=== PATIENT | female | born 2005 | race Caucasian/White ===

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

== ENCOUNTER 2024-09-29 09:55 | Outpatient (CLI) | payer BC, SELFPAY ==
[2024-09-29 10:02] VITALS: BP 125/74; PULSE 81
[2024-09-29 10:03] VITALS: RESP 18; BMI 27.4
[2024-09-29 10:17] VITALS: BP 125/68; PULSE 72
[2024-09-29 10:28] VITALS: BP 125/68; PULSE 72; O2SAT 98
== END 2024-09-29 10:28 | disposition home or self-care (01) ==
LOC: OPOB 09:57 → OBGYN 09:58
PROVIDERS: PCP Pediatrics; Visit Provider Family Medicine
DX: O36.8399 Maternal care for abnormalities of the fetal heart rate or rhythm, unspecified trimester, other fetus (principal); Z3A.00 Weeks of gestation of pregnancy not specified; R00.0 Tachycardia, unspecified
CPT/HCPCS: 59025; 99211

== ENCOUNTER 2024-10-31 19:04 | Outpatient (CLI) | payer BC, SELFPAY ==
[2024-10-31] VITALS (14 sets, daily range): BP systolic 108–120; BP diastolic 62–67; PULSE 81–95; O2SAT 97–98
== END 2024-10-31 20:08 | disposition home or self-care (01) ==
LOC: OPOB 19:06 → OBGYN 19:07
PROVIDERS: PCP Pediatrics; Visit Provider Family Medicine
DX: O26.899 Other specified pregnancy related conditions, unspecified trimester (principal); Z3A.00 Weeks of gestation of pregnancy not specified; R10.9 Unspecified abdominal pain; T59.811A Toxic effect of smoke, accidental (unintentional), initial encounter; X58.XXXA Exposure to other specified factors, initial encounter
CPT/HCPCS: 59025; 99211

== ENCOUNTER 2024-11-08 09:15 | Inpatient (IN) | payer OTHER, BC, SELFPAY ==
[2024-11-08] VITALS (51 sets, daily range): BP systolic 108–177; BP diastolic 55–104; PULSE 76–155; RESP 16; TEMP 35.7–36.7; O2SAT 98–99; BMI 27.7
[2024-11-08 09:33] LABS: Hematocrit 34.7 % (36-47); Hemoglobin 10.70 g/dL (11.27-16.99); Mean Corpuscular HGB Conc 30.8 g/dL (30-55); Mean Corpuscular Hemoglobin 24.1 pg (27-33); Mean Corpuscular Volume 78.2 fl (85-98); Nucleated Red Blood Cells % 0 %; Platelet Count 217 10^3/cmm (157-399); Red Blood Count 4.44 10^6/uL (3.85-5.65); White Blood Count 8.42 10^3/uL (3.29-11.43)
[2024-11-08] MEDS: penicillin g potassium 5,000,000 UNIT in sodium chloride 0.9% (plus) 100 ML 100 UNIT IV (09:45)
[2024-11-08] MEDS: oxytocin 30 UNIT/500 ML BAG IV (09:50)
[2024-11-08] MEDS: ROPivacaine premix 200 MG/100 ML PREMIX 10 MG EPIDURAL (12:25)
--- NOTE | 2024-11-08 12:48 | P.ANESUD_ITS ---
Pre-Anesthetic Update Pre-Anesthetic Assessment: Date of Surgery/Procedure: 11/08/24 Proposed Procedure: epidural Any changes to Pre-Anesthetic Assessment?: No Labs Last 48hrs: Short CBC 11/08/24 Range/Units 09:17 WBC 8.42 (3.29-11.43) 10^ 3/uL Hgb 10.70 L (11.27-16.99) g/ dL Hct 34.7 L (36-47) % MCV 78.2 L (85-98) fl Plt Count 217 (157-399) 10^3/c mm Neut % (Auto) 77.3 % Neut # (Auto) 6.51 (1.8-7.7) 10^3/u L Blood Bank 11/08/24 09:17 Blood Type A Positive Rho(D) Type Rh positive Antibody Screen Negative Vitals: Pulse Rate 81 11/08/24 12:42 Pulse Rhythm Regular 11/08/24 09:08 Pulse Strength 3+ Normal 11/08/24 09:08 Respiratory Rate 16 11/08/24 09:04 Respiratory Effort Spontaneous, Non- Labored 11/08/24 09:08 Respiratory Depth Normal 11/08/24 09:08 Respiratory Patter n Normal 11/08/24 09:08 Blood Pressure 117/65 11/08/24 12:42 Pulse Oximetry 99 11/08/24 12:41 Oxygen Delivery Me thod Room Air 11/08/24 09:08 Exam: Pre-Anes Outpt Exam: alert, oriented x 3, clear to auscultation bilaterally and regular rate & rhythm Anesthesia Procedures Epidural: Time Out Performed: Yes Consents Signed: Procedure Consent Consent: requested by attending/covering physician, from patient, from other, risks and benefits reviewed and patient agrees to proceed Lumbar Level: L3-L4 Epidural position: sitting Epidural procedure: sterile prep of area, 1% lidocaine to numb the area, 18 g needle, negative for paresthesia passed, neg for paresthesia, test dose given, 1.5% xylocaine 1:200k epi (5 cc), 0.2% Ropivacaine bolus ml (5), placed PCEA, no systemic response, sterile dressing a pplied, L.U.D. no apparent complications and 0.2% Ropiavacaine @ mls/hr (10)
[2024-11-08] MEDS: PENICILLIN G POTASSIUM 2,500,000 UNIT/50 ML BAG 50 UNIT IV (13:04)
--- NOTE | 2024-11-08 14:09 | PM.OPHPUD ---
Labor & Delivery H&P Update Date of Procedure: November 08, 2024 Date H&P Performed: 11/03/24 Admission Diagnosis: IUP at 40 weeks 2 days gestation Active labor Planned procedure: Expectant management of labor and delivery
--- NOTE | 2024-11-08 14:10 | P.PCNOB_ITS ---
Delivery Note: Date of delivery: November 08, 2024 Estimated blood loss (mL): 75 Pre-Delivery Course: The patient had routine care at [facility]. There were no complications during the labs blood type A+ antibody negative, hepatitis B nonreactive, hepatitis C nonreactive, HIV nonreactive, rubella immune, GC chlamydia negative, RPR nonreactive, UDS negative, she passed her glucose tolerance test, she was GBS positive on urine culture. Delivery: This is a 19-year-old G1, P0 at 40 weeks 2 days gestation who presented to labor and delivery in active labor. She was known to be GBS positive and received 2 doses of penicillin prior to delivery. She was only didier once every 10 minutes social her labor was augmented using Pitocin. She received an epidural for pain management. She underwent artificial rupture of membranes with clear fluid. It was not long after that she had a normal spontaneous vaginal delivery of a viable female infant weight 3270 g, 8 pounds 3 ounces, Apgars 8 and 9 over an intact perineum. The infant was suctioned at delivery and placed on mother's chest. The cord was clamped and cut. The placenta was delivered grossly intact and normal to inspection. There was a first-degree right labial laceration that was sutured using 3-0 chromic. Mother and infant were doing well after delivery. Mother only had to push through about 5 contractions. A&P Assessment and plan 1. Normal spontaneous vaginal delivery: PDMP PDMP Reviewed: Not Reviewed Coding Level of Care Code Acute Code for Chg Fwd Diagnoses Normal spontaneous vaginal delivery O80
[2024-11-09 03:02] LABS: Hematocrit 33.1 % (36-47); Hemoglobin 10.30 g/dL (11.27-16.99); Mean Corpuscular HGB Conc 31.1 g/dL (30-55); Mean Corpuscular Hemoglobin 24.4 pg (27-33); Mean Corpuscular Volume 78.4 fl (85-98); Platelet Count 228 10^3/cmm (157-399); Red Blood Count 4.22 10^6/uL (3.85-5.65); White Blood Count 12.35 10^3/uL (3.29-11.43)
[2024-11-09 04:00] VITALS: BP 120/77; PULSE 84; RESP 17
--- NOTE | 2024-11-09 07:47 | P.DS_ITS ---
Discharge Providers Date of Admission: 11/08/24 09:15 Date of Discharge: November 09, 2024 Attending Provider at Admission: Parris Thompson MD Attending Provider at Discharge: Parris Thompson MD Primary Care Provider: Aba Ochoa MD Diagnoses at Discharge Discharge Diagnosis 1. Normal spontaneous vaginal delivery: Reason for Visit Reason for Visit: contractions Hospital Course Hospital Course This is a 19-year-old G1 now P1 who had a normal spontaneous vaginal delivery of a viable female infant. There were no complications during the labor and delivery. mother has done well with decreased vaginal bleeding, she is ambulating, tolerating a regular diet, and has no significant pain. She is comfortable with discharge home. Physical Exam Narrative: Alert and oriented, sitting up in bed, heart regular rate and rhythm, lungs clear to auscultation bilaterally, abdomen is soft and nontender, fundus is firm, extremities have trace edema but no calf tenderness Urinary Catheter Management: De Jesus: Cath Placed During This Visit: yes, but has since been removed by the nurse Reason for Continuing Indwelling Catheter: Decision to DC Catheter Urinary Catheter Date of Insertion: 11/08/24 Urinary Catheter Time of Insertion: 12:55 Date Urinary Catheter Removed: 11/08/24 Time Urinary Catheter Discontinued: 13:42 Discharge Data Studies Completed and Pending Laboratory Results WBC 12.35 10^3/uL (3.29-11.43) H 11/09/24 02:50 RBC 4.22 10^6/uL (3.85-5.65) 11/09/24 02:50 Hgb 10.30 g/dL (11.27-16.99) L 11/09/24 02:50 Hct 33.1 % (36-47) L 11/09/24 02:50 MCV 78.4 fl (85-98) L 11/09/24 02:50 MCH 24.4 pg (27-33) L 11/09/24 02:50 MCHC 31.1 g/dL (30-55) 11/09/24 02:50 RDW 14.9 % (12.1-15.1) 11/09/24 02:50 Plt Count 228 10^3/cmm (157-399) 11/09/24 02:50 MPV 10.6 fL (7.4-10.4) H 11/09/24 02:50 Neut % (Auto) 77.3 % 11/08/24 09:17 Lymph % (Auto) 13.8 % 11/08/24 09:17 [place] % (Auto) 7.1 % 11/08/24 09:17 Eos % (Auto) 1.0 % 11/08/24 09:17 Baso % (Auto) 0.2 % 11/08/24 09:17 Neut # (Auto) 6.51 10^3/uL (1.8-7.7) 11/08/24 09:17 Lymph # (Auto) 1.2 10^3/uL (0.8-4.8) 11/08/24 09:17 [place] # (Auto) 0.6 10^3/uL (0.2-0.9) 11/08/24 09:17 Eos # (Auto) 0.1 10^3/uL (0.0-0.8) 11/08/24 09:17 Baso # (Auto) 0.0 10^3/uL (0.0-0.1) 11/08/24 09:17 Nucleated RBC % (auto) 0 % 11/08/24 09:17 Nucleated RBCs # 0.0 /100WBC 11/08/24 09:17 Blood Type A Positive 11/08/24 09:17 Rho(D) Type Rh positive 11/08/24 09:17 Antibody Screen Negative 11/08/24 09:17 Vitals Last Vital Signs Temp 98.1 F 11/08/24 13:15 Pulse 83 11/08/24 22:00 Resp 16 11/08/24 22:00 BP 115/77 11/08/24 22:00 Pulse Ox 99 11/08/24 12:51 O2 Del Method Room Air 11/08/24 09:08 Discharge Plan Discharge Patient Disposition: Home Condition: Stable Prescriptions: Continued 1 active tab PO 1XD Discharge Order = DC NOW: Discharge Order (Routine); Ordered 11/09/24 Ordered By: Parris Thompson Referrals: Parris Thompson MD [Physician, Family Practice] - 1 month Discharge Diet: Usual diet Discharge Activity: Limit activity as instructed Patient Instructions: Opioid Safety, Patient Portal & Radha Instructions Activity Restrictions/Additional Instructions: Nothing per vagina for 6 weeks Discharge Attestations Time Spent in Discharge Care*: less than 30 min Quality Metrics Clinical Quality Measures [ No reported AMI, CVA or VTE this stay] Coding Level of Care Code Acute Code for Chg Fwd Diagnoses Normal spontaneous vaginal delivery O80
--- NOTE | 2024-11-09 08:00 | ANE.PACU2 ---
Inpatient post-anesthesia follow up: Airway intact: Yes Vital signs: Temperature 98.4 F Pulse Rate 80 Respiratory Rate 17 Blood Pressure 128/72 Pulse Oximetry 99 Oxygen Delivery Me thod Room Air Oxygen Flow Rate Fraction of Inspir ed Oxygen Hydration adequate: Yes Nausea and vomiting: No Pain level: 1 Mental status: Baseline Epidural Start/End: Epidural Start Date: 11/08/24 Epidural Start Time: 12:10 Epidural End Date: 11/08/24 Epidural End Time: 14:15
[2024-11-09 10:00] VITALS: BP 123/70; PULSE 87; RESP 17; TEMP 36.8
[2024-11-09 17:24] VITALS: BP 128/72; PULSE 80; RESP 17; TEMP 36.9
== END 2024-11-09 17:30 | disposition home or self-care (01) | DRG 807 ==
LOC: OPOB 14:01 → OBGYN 14:01
PROVIDERS: Admitting Provider Family Medicine; PCP Pediatrics; Visit Provider Family Medicine
DX: O48.0 Post-term pregnancy (principal); Z37.0 Single live birth; Z3A.40 40 weeks gestation of pregnancy; O99.824 Streptococcus B carrier state complicating childbirth; O70.0 First degree perineal laceration during delivery
CPT/HCPCS: 36415; 59025; 85025; 85027; 86850; 86900; 99211; J2540; J2590; J2795; J7120; J7121; J9999